=== PATIENT | female | born 1980 | race Asian ===

== ENCOUNTER 2023-06-09 22:30 | Emergency (ER) | payer OTHER ==
[~2023-06-09] VITALS: Ht 157.5 cm; Wt 65.8 kg
[2023-06-09 22:36] VITALS: BP_SYST 101; PULSE 96; RESP 20; TEMP 98.3; O2SAT 94
== END 2023-06-10 00:35 | disposition left against medical advice (07) ==
LOC: SED 22:30
DX: U07.1 COVID-19 (principal); R05.9 Cough, unspecified; R09.81 Nasal congestion; Z53.21 Procedure and treatment not carried out due to patient leaving prior to being seen by health care provider
CPT/HCPCS: 99281